=== PATIENT | female | born 1975 | race Hispanic/Latino ===

== ENCOUNTER 2018-03-29 10:00 | Outpatient (CLI) | payer MEDICARE | END 2018-03-29 10:01 | disposition home or self-care (01) | LOC: LAB 10:00 | PROVIDERS: ATTEND Psychiatry & Neurology Psychiatry | DX: F25.0 Schizoaffective disorder, bipolar type (principal); Z87.891 Personal history of nicotine dependence | CPT/HCPCS: 36415; 80164 ==

== ENCOUNTER 2019-01-01 10:10 | Emergency (ER) | payer MEDICARE ==
[2019-01-01 10:53] VITALS: BP 149/90
[2019-01-01] MEDS ORDERED: IBUPROFEN PO ONE (11:22)
--- NOTE | 2019-01-01 12:32 | XRay Report ---
LEFT HIP 2 VIEWS INDICATION / CLINICAL INFORMATION: Fall with left hip pain. COMPARISON: None available. FINDINGS: BONES / JOINT(S): The hip and SI joint spaces are well-maintained. There is no evidence of fracture o r dislocation. There is mild lower lumbar spondylosis. SOFT TISSUES: No significant abnormality. ADDITIONAL FINDINGS: None. IMPRESSION: No acute abnormality. Signer Name: Michael Ley MD Signed: 01/01/2019 11:28 AM Workstation Name: [id number]
--- NOTE | 2019-01-01 14:03 | Emergency Department Report ---
ED Extremity Problem HPI - General Chief complaint: Extremity Problem,Nontraumatic Stated complaint: R HIP PAIN Time Seen by Provider: 01/01/19 11:22 Source: patient Mode of arrival: Ambulatory Limitations: No Limitations - History of Present Illness Initial comments: Patient is a 43-year-old female who is presenting with left hip pain. Patient is a very poor historian problem probably secondary to her past head injury and aneurysm. Patient states she had a fall in October and hurt her hip however she states she fell yesterday as well. Patient is unable to give any details of the fall. When I asked this was she dizzy or did she trip and fall she just states that yes she fell originally the patient states she was cleaning or cooking when she fell. Patient's father called the emergency department states that she is in a residential has not been taking her medications. No other history of her behavior is known at this time. Severity scale (0 -10): 5 - Related Data Home Medications Medication Instructions Recorded Confirmed Last Taken No Known Home Medications [No 05/25/14 03/24/16 Unknown Reported Home Medications] Allergies Allergy/AdvReac Type Severity Reaction Status Date / Time No Known Allergies Allergy Verified 05/25/14 00:19 ED Review of Systems ROS: Stated complaint: R HIP PAIN Other details as noted in HPI Comment: All other systems reviewed and negative ED Past Medical Hx - Past Medical History Previous Medical History?: Yes Hx Psychiatric Treatment: Yes (bipolar) - Social History Smoking Status: Current Some Day Smoker - Medications Home Medications: Home Medications Medication Instructions Recorded Confirmed Last Taken Type No Known Home Medications [No 05/25/14 03/24/16 Unknown History Reported Home Medications] ED Physical Exam - General Limitations: No Limitations General appearance: alert, in no apparent distress - Head Head exam: Present: atraumatic, normocephalic - Eye Eye exam: Present: normal appearance - ENT ENT exam: Present: mucous membranes moist - Neck Neck exam: Present: normal inspection - Respiratory Respiratory exam: Present: normal lung sounds bilaterally. Absent: respiratory distress, wheezes, rales, rhonchi - Cardiovascular Cardiovascular Exam: Present: regular rate, normal rhythm. Absent: systolic murmur, diastolic murmur, rubs, gallop - GI/Abdominal GI/Abdominal exam: Present: soft, normal bowel sounds. Absent: distended, tenderness, guarding, rebound - Extremities Exam Extremities exam: Present: normal inspection, tenderness (at the left iliac crest) - Back Exam Back exam: Present: normal inspection - Neurological Exam Neurological exam: Present: alert, oriented X3 - Psychiatric Psychiatric exam: Present: normal affect, anxious - Skin Skin exam: Present: warm, dry, intact, normal color. Absent: rash ED Course Vital Signs 01/01/19 10:50 Temperature 98.7 F Pulse Rate 96 H Respiratory 16 Rate Blood Pressure 149/90 O2 Sat by Pulse 100 Oximetry ED Medical Decision Making - Radiology Data X-ray left hip shows no acute abdomen mildly - Medical Decision Making X-ray of the left hip was within normal limits. When I told patient that her left hip showed no evidence of fracture she became agitated and stated that she could not walk. Patient was then noted to be leaving the emergency Department walking through the ED very quickly. Patient left before we were able to sort out her behavioral issues with her residential. The patient was to be discharged after our mental health consult. Vision is left AGAINST MEDICAL ADVICE without signing. Critical care attestation.: If time is entered above; I have spent that time in minutes in the direct care of this critically ill patient, excluding procedure time. ED Disposition Clinical Impression: Hip pain Qualifiers: Laterality: left Qualified Code(s): M25.552 - Pain in left hip Disposition: DC-07 LEFT AGAINST MED ADVICE Is pt being admited?: No Does the pt Need Aspirin: No Condition: Stable Referrals: DEVANG CHAN MD [Primary Care Provider] - 3-5 Days Time of Disposition: 14:03
== END 2019-01-01 13:35 | disposition left against medical advice (07) ==
LOC: ED 10:10
DX: M25.552 Pain in left hip (principal); F31.9 Bipolar disorder, unspecified; F17.200 Nicotine dependence, unspecified, uncomplicated; W01.198A Fall on same level from slipping, tripping and stumbling with subsequent striking against other object, initial encounter; Y93.89 Activity, other specified; Y92.89 Other specified places as the place of occurrence of the external cause; Y99.8 Other external cause status
CPT/HCPCS: 99283

== ENCOUNTER 2019-03-03 11:11 | Emergency (ER) | payer MEDICARE ==
[2019-03-03 11:49] VITALS: BP 131/79
[2019-03-03 11:59] LABS: Basophils # (Auto) 0.1 K/mm3 (0.0-0.1); Basophils % (Auto) 1.1 % (0.0-1.8); Eosinophils # (Auto) 0.1 K/mm3 (0.0-0.4); Eosinophils % (Auto) 1.4 % (0.0-4.3); Hematocrit 32.5 % (30.3-42.9); Hemoglobin 11.2 gm/dl (10.1-14.3); Lymphocytes # (Auto) 1.4 K/mm3 (1.2-5.4); Lymphocytes % (Auto) 14.3 % (13.4-35.0); Mean Corpuscular HGB Conc 34 % (30-34); Mean Corpuscular Volume 98 fl (79-97); Monocytes # (Auto) 0.7 K/mm3 (0.0-0.8); Monocytes % (Auto) 6.9 % (0.0-7.3); Platelet Count 364 K/mm3 (140-440); Red Blood Count 3.33 M/mm3 (3.65-5.03); Red Cell Distribution Width 15.1 % (13.2-15.2)
--- NOTE | 2019-03-03 12:02 | Emergency Department Report ---
ED General Adult HPI - General Chief complaint: Altered Mental Status Stated complaint: MH EVAL Time Seen by Provider: 03/03/19 11:49 Source: patient, EMS (EMS notes not available at time of chart dictation), RN notes reviewed Mode of arrival: Stretcher Limitations: No Limitations - History of Present Illness Initial comments: This is a 43-year-old female. The patient is not known to this provider previously. Reportedly has a history of bipolar disorder, and may be homeless. Patient brought to the hospital by emergency medical services. Reportedly, as per verbal report from nursing team, patient was walking around in people's yards, and emergency medical services was contacted. Patient was somewhat agitated in the field, and therefore medicated as per protocol emergency medical services. The patient does not have any medical complaints at this time. She states she wants to go back to her roommate. The patient is explicit that she is not homicidal or suicidal. The patient is explicit that she does not want to overdose on anything. Initially, the patient was agitated, walking around the ER with a steady gait, requesting her clothing. She was somewhat hyperverbal, however, a splint to the patient that if she cannot calm down and provide a lucid history for me, we would need to place her on a 1013. At that point in time, the patient became very calm. She stated that it was very important that she be discharged, because she has a court obligation which she needs to testify on Monday, for family member/relative. She did that tomorrow the cords were closed because of the holiday. The patient also knew that she was in the hospital, was able to provide her name, was able to provide a year. She has no medical complaints at this time. Associated Symptoms: denies other symptoms - Related Data Home Medications Medication Instructions Recorded Confirmed Last Taken No Known Home Medications [No 05/25/14 03/24/16 Unknown Reported Home Medications] Allergies Allergy/AdvReac Type Severity Reaction Status Date / Time No Known Allergies Allergy Verified 05/25/14 00:19 ED Review of Systems ROS: Stated complaint: MH EVAL Other details as noted in HPI Constitutional: denies: fever Cardiovascular: denies: chest pain Gastrointestinal: denies: abdominal pain Psychiatric: denies: homicidal thoughts, suicidal thoughts ED Past Medical Hx - Past Medical History Hx Psychiatric Treatment: Yes (bipolar) - Surgical History Past Surgical History?: No - Social History Smoking Status: Never Smoker Substance Use Type: None - Medications Home Medications: Home Medications Medication Instructions Recorded Confirmed Last Taken Type No Known Home Medications [No 05/25/14 03/24/16 Unknown History Reported Home Medications] ED Physical Exam - General Limitations: No Limitations, Other General appearance: alert, anxious - Head Head exam: Present: atraumatic, normocephalic - Eye Eye exam: Present: normal appearance, EOMI - ENT ENT exam: Present: normal exam, normal orophraynx, mucous membranes moist, normal external ear exam - Neck Neck exam: Present: normal inspection, full ROM - Respiratory Respiratory exam: Present: normal lung sounds bilaterally. Absent: respiratory distress - Cardiovascular Cardiovascular Exam: Present: regular rate, normal rhythm, normal heart sounds. Absent: bradycardia, tachycardia, irregular rhythm, systolic murmur, diastolic murmur, rubs, gallop - GI/Abdominal GI/Abdominal exam: Present: soft. Absent: distended, tenderness, guarding, rebound, rigid, pulsatile mass - Extremities Exam Extremities exam: Present: normal inspection, full ROM - Back Exam Back exam: Present: normal inspection, full ROM - Neurological Exam Neurological exam: Present: alert, oriented X3, normal gait, other (Extraocular movements are intact bilaterally. There is no facial droop. The tongue is midline. Patient speaking in full complete sentences. There is no dysphonia. Hearing is grossly intact bilaterally. Shoulder shrug is intact bilaterally. 5/5 strength bilateral upper, lower extremities. Sensation is intact to light touch bilateral upper, lower extremities.). Absent: motor sensory deficit - Psychiatric Psychiatric exam: Present: anxious - Skin Skin exam: Present: warm, dry, intact, normal color. Absent: rash ED Course Vital Signs 03/03/19 11:45 Temperature 98.2 F Pulse Rate 96 H Blood Pressure 131/79 O2 Sat by Pulse 94 Oximetry ED Medical Decision Making - Lab Data Result diagrams: 03/03/19 11:50 03/03/19 11:50 Vital Signs 03/03/19 11:45 Temperature 98.2 F Pulse Rate 96 H Blood Pressure 131/79 O2 Sat by Pulse 94 Oximetry On my exam, respiratory rate 12-16. - Medical Decision Making Differential diagnosis, including not limited to: Bipolar disorder, disorganized behavior, homelessness Assessment and plan: 43-year-old female, who does not have any medical complaints at this time. She is not homicidal or suicidal. While the patient is initially agitated, she is able to calm down, and have a rational conversation. She is somewhat disorganized, but does not meet criteria for 1013 or involuntary hold at this time. The patient does not want any further medical assistance or psychiatric assistance at this time. She can be discharged to follow-up. Critical care attestation.: If time is entered above; I have spent that time in minutes in the direct care of this critically ill patient, excluding procedure time. ED Disposition Clinical Impression: General medical exam Disposition: DC-01 TO HOME OR SELFCARE Is pt being admited?: No Does the pt Need Aspirin: No Condition: Stable Additional Instructions: Follow-up with the primary care doctor or psychiatrist within the next month. Return to the emergency room right away with new, worsening or different symptoms, or symptoms not present on the initial emergency room evaluation. Referrals: [facility] [Provider Group] - 3-5 Days [facility] [Outside] - 3-5 Days
[2019-03-03 12:37] LABS: BUN/Creatinine Ratio 21; Blood Urea Nitrogen 15 mg/dL (7-17); Calcium 8.7 mg/dL (8.4-10.2); Hemolysis Index 11
== END 2019-03-03 13:30 | disposition home or self-care (01) ==
LOC: ED 11:11
DX: F31.9 Bipolar disorder, unspecified (principal)
CPT/HCPCS: 36415; 80048; 85025